=== PATIENT | female | born 1950 | race Caucasian/White ===

== ENCOUNTER → 2020-01-29 | Outpatient (CLI) | payer OTHER, MEDICARE ==
[~2020-01-29] MED LIST: ASPIR 8181 MG PO; BRILINTA90 MG PO; CENTRUM SILVER1 EAC5 PO; CHOLECALCIFEROL1 GM PO; FISH OIL 1,0001 EAC9 PO; NITROGLYCERIN0.4 MG SUBLING; ROSUVASTATIN CA20 MG PO
== END ==
LOC: SJCVC 13:44
DX: R07.9 Chest pain, unspecified (principal); J40 Bronchitis, not specified as acute or chronic; F41.9 Anxiety disorder, unspecified; I10 Essential (primary) hypertension; E55.9 Vitamin D deficiency, unspecified; Z68.26 Body mass index [BMI] 26.0-26.9, adult; Z79.899 Other long term (current) drug therapy

== ENCOUNTER → 2020-02-01 | Outpatient (CLI) | payer OTHER, MEDICARE | LOC: SJCVCIMAG 11:24 | DX: I36.1 Nonrheumatic tricuspid (valve) insufficiency (principal); I10 Essential (primary) hypertension; E78.5 Hyperlipidemia, unspecified ==

== ENCOUNTER 2020-02-13 07:43 | Observation (INO) | payer OTHER, MEDICARE ==
[~2020-02-13] VITALS: Ht 167.6 cm; Wt 76.5 kg
[2020-02-13] VITALS (15 sets, daily range): BP systolic 146–184; BP diastolic 78–99
[2020-02-13 08:27] LABS: HEMATOCRIT 42.2 % (37.0-47.0); HEMOGLOBIN 14.5 gm/dL (12.0-15.0); MCH 30.5 pg (26.0-34.0); MCHC 34.3 g/dL (28.0-37.0); MCV 88.7 fL (80.0-100.0); RBC 4.76 mil/uL (4.20-5.00); RDW 12.5 % (10.5-14.5); WBC 6.4 thou/uL (4.0-11.0)
[2020-02-13 08:36] LABS: CALCIUM 9.9 mg/dL (8.5-10.1); POTASSIUM 4.1 mmol/L (3.5-5.1)
[2020-02-13] MEDS ORDERED: ROSUVASTATIN CA20 MG PO (08:46)
[2020-02-13] MEDS ORDERED: CHOLECALCIFEROL1 GM PO (08:47)
[2020-02-13] MEDS ORDERED: FISH OIL 1,0001 EAC9 PO (08:48)
[2020-02-13] MEDS ORDERED: CENTRUM SILVER1 EAC5 PO (08:48)
--- NOTE | 2020-02-13 11:45 | NUR ---
TO UNIT FROM PACU POST CATH AT 1100, REPORT FROM KUNAL CARTAGENA. RIGHT GROIN SITE WITH MINX CLOSURE CDI, NO S/S HEMATOMA. NSR WITH FIRST DEGREE AV BLOCK PER TELE. HTN NOTED. BEDREST UNTIL 1330.
[2020-02-14 00:37] VITALS: BP 133/64
[2020-02-14 03:29] VITALS: BP 132/71
--- NOTE | 2020-02-14 03:45 | NUR ---
Slept fair during the night. Denies any chest pain or shortness of breath. Right groin soft with dressing CDI. Up ad ivette in room with steady gait. Progressing towards discharge goals.
[2020-02-14 07:30] VITALS: BP 137/67
[2020-02-14 12:04] VITALS: BP 137/67
--- NOTE | 2020-02-14 12:06 | NUR ---
ASSUMED CARE 0700. POST OF DAY 1 OF CATH STENT. ALERT X4, DENIES SOB, DENIES CHEST PAIN, RIGHT GROIN SITE C/D/I, UP AB LIP, OKAY TO WALK THE MOORE. WILL DC HOME WITH SELF CARE. CARDIAC REHAB NURSE PROVIDED BEDSIDE POST HEART CATH EDUCATIONS. DR HICKMAN BEDSIDE TO REVIEW POST PROCEDURE CARE. PERSONAL ITEMS AND CALL LIGHT IN REACH.
[2020-02-14] MEDS ORDERED: BRILINTA90 MG PO (12:08)
[2020-02-14] MEDS ORDERED: NITROGLYCERIN0.4 MG SUBLING (12:10)
[2020-02-14] MEDS ORDERED: ASPIR 8181 MG PO (12:11)
[2020-02-14 12:22] VITALS: BP 137/67
--- NOTE | 2020-02-15 13:06 | D ---
[facility] [place] [address] DISCHARGE SUMMARY Name: MARKO DAMON Room #: 203-P MARISA Ling#: [id number] Admission: 02/13/20 Attend Phys: Sam Fay Discharge: 02/14/20 Date of : 48 Report #: [id number] THIS REPORT FOR: cc: Remington Strange,Remington Jerez,Sam Haney MD ~ THIS REPORT FOR: //name// CC: Sam Strange DATE OF SERVICE: 02/14/2020 ADMITTING DIAGNOSIS: Chest pains with abnormal perfusion scan. DISCHARGE DIAGNOSES: 1. Coronary artery disease. 2. Dyslipidemia. 3. Acid peptic disease. PROCEDURES PERFORMED: 1. Left heart catheterization. 2. Percutaneous transluminal coronary angioplasty and stenting of the left anterior descending coronary artery with a MATTIE stent as noted in the report. DISCHARGE MEDICATIONS: 1. Brilinta 90 mg b.i.d. 2. Aspirin 81 mg daily. 3. Home medications. DISCHARGE DIET: [employer] step 1 diet. FOLLOWUP: Dr. Fay in 3-4 weeks. BRIEF CLINICAL HISTORY: See history and physical in chart. HOSPITAL COURSE: The patient was admitted to the hospital and underwent elective left heart catheterization. This demonstrated significant high-grade LAD lesion, which was subsequently percutaneously vascularized with a MATTIE stent. Post-procedure, the patient did quite well, ambulating without limitations. She remained electrically and hemodynamically stable without any significant issues. She was given instructions on dietary and medications and discharged [facility] [address] [place] [address] DISCHARGE SUMMARY Name: MARKO DAMON Room #: 203-P [facility] Jared Ling#: [id number] Admission: 02/13/20 Attend Phys: Sam Fay Discharge: 02/14/20 Date of : 48 Report #: [id number] home in a stable and improved condition to follow up with the previously stated discharge instructions and medications. <ELECTRONICALLY SIGNED> By: Sam Fay MD 02/15/20 1306 1212 1254 Sam Fay MD /nt
== END 2020-02-14 12:45 | disposition home or self-care (01) ==
LOC: CATH 07:43 → 2N 11:00 → CATH 14:07 → 2N 02-14 12:45
PROVIDERS: ADMIT Internal Medicine
DX: I25.10 Atherosclerotic heart disease of native coronary artery without angina pectoris (principal); K30 Functional dyspepsia; E78.5 Hyperlipidemia, unspecified

== ENCOUNTER → 2020-03-18 | Outpatient (CLI) | payer OTHER, MEDICARE | LOC: SJCVC 09:53 | PROVIDERS: ATTEND Internal Medicine | DX: I25.10 Atherosclerotic heart disease of native coronary artery without angina pectoris (principal); I10 Essential (primary) hypertension; E78.5 Hyperlipidemia, unspecified; Z95.5 Presence of coronary angioplasty implant and graft ==

== ENCOUNTER → 2020-06-20 | Outpatient (CLI) | payer OTHER, MEDICARE | LOC: SJCVC 10:16 | PROVIDERS: ATTEND Internal Medicine | DX: R00.1 Bradycardia, unspecified (principal); I25.10 Atherosclerotic heart disease of native coronary artery without angina pectoris; I10 Essential (primary) hypertension; E78.5 Hyperlipidemia, unspecified; Z95.5 Presence of coronary angioplasty implant and graft ==

== ENCOUNTER → 2021-08-07 | Outpatient (CLI) | payer OTHER, MEDICARE | LOC: SJCVC 13:42 | PROVIDERS: ATTEND Internal Medicine | DX: I25.10 Atherosclerotic heart disease of native coronary artery without angina pectoris (principal); E78.5 Hyperlipidemia, unspecified; I10 Essential (primary) hypertension; F41.9 Anxiety disorder, unspecified; N20.0 Calculus of kidney; E80.4 Gilbert syndrome; E55.9 Vitamin D deficiency, unspecified; Z79.82 Long term (current) use of aspirin; Z79.899 Other long term (current) drug therapy; Z88.8 Allergy status to other drugs, medicaments and biological substances ==

== ENCOUNTER 2021-11-19 13:25 | Emergency (ER) | payer OTHER, MEDICARE ==
[~2021-11-19] VITALS: Ht 170.2 cm; Wt 68.0 kg
--- NOTE | ~2021-11-19 | EMS ---
[address] [address] EMS Patient Care Report Name: MARKO DAMON Room #: REG FAUSTO Ling#: [id number] Admission: 11/19/21 Attend Phys: Discharge: Date of : 48 Report #: [id number] THIS REPORT FOR: //name// Report Transmitted: 11/19/2021 13:18 EMS Care Summary MACEY Chi ELY Incident [id number] @ 11/19/2021 12:28 Incident Location [address] [facility] [place] [address] Patient MARKO HOLMAN Female, 71 Years 1950 Patient Address [address] [place] [address] Patient History , Patient Allergies No known allergies, Chief Complaint Nausea Disposition Transported No Lights/[place] Dispatch Reason Sick Person Transported To [facility] Narrative [facility] WAS DISPATCHED EMERGENT FOR A 71 Y/O FEMALE WHO HAS HIGH BLOOD PRESSURE AND IS NAUSEATED. UPON ARRIVAL ON SCENE AT [facility], THE PT WAS FOUND IN THE WOMEN'S BATHROOM. THE PT WAS PALE, COOL, DRY, AWAKE, ALERT, AND A GCS OF 15 THE PT APPEARED ANXIOUS. THE PT INDICATES THAT SHE BECAME DIZZY WHILE WORKING AND IT BECAME SO BAD THAT SHE BECAME NAUSEOUS. THE PT DID VOMIT ONCE BEFORE EMS ARRIVAL. THE PT WAS NEAR SYNCOPE BUT NEVER LOST consciousness. THE PT DID NOT FALL AND DID NOT HIT HER HEAD. IFD INDICATED THAT THE PT'S BLOOD PRESSURE WAS [address] [address] EMS Patient Care Report Name: MARKO DAMON Room #: REG [facility]..#: [id number] Admission: 11/19/21 Attend Phys: Discharge: Date of : 48 Report #: [id number] HIGH AND THE 12 LEAD WAS NORMAL SINUS (sEE REPORT). THE PT DENIES A HISTORY OF HTN. THE PT'S BLOOD PRESSURE WAS 190/P FOR EMS. THE PT INDICATES STILL FEELING NAUSEOUS AND DIZZY. THE PT INDICATES FEELING SLIGHTLY BETTER EITHER LEANING FORWARD IN THE SEAT OR STANDING UP. THE PT INDICATES THAT THIS HAS NEVER HAPPENED BEFORE. THE PT WAS SAT ON THE COT AND THEN LOADED INTO THE AMBULANCE. ONCE IN THE AMBULANCE, A SET OF VITALS, IV, BGL, BLOOD DRAW, 4 LEAD, AND LACTATED RINGER'S WAS HUNG GOING TKO (SEE REPORT). THE PT WAS GIVEN IV ZOFRAN WHICH TOOK AWAY THE NAUSEA. THERE WAS NO DCAP-BTLS NOTED, PUPILS ARE YASMIN, AND LUNG SOUNDS ARE CLEAR. MACEY Ortiz WENT EN ROUTE NON-EMERGENT TO [facility] PER THE PT'S REQUEST. A RADIO REPORT WAS GIVEN EN ROUTE. THE PT REMAINED STABLE, GCS OF 15, AND VITALS WERE MONITORED. THE PT DID SLEEP SOME EN ROUTE. THE PT INDICATES THAT HER NAUSEA DID COME BACK BUT NOT BAD IT HAD BEEN. THE PT WAS DRY HEAVING SLIGHTLY PRIOR TO ARRIVAL AT THE ER. UPON ARRIVAL, THE PT WAS UNLOADED AND TAKEN TO THE ER BED. A HAND OFF REPORT WAS GIVEN. MACEY Ortiz WAS THEN CLEARED AND RETURNED TO SERVICE. Initial Vitals @12:58SpO2: 100, @13:03SpO2: 100, @13:08SpO2: 100, @13:14SpO2: 99, @13:15SpO2: 100, @STEEL ERECTOR APPRENTICE @PTAP: 98,R: 18,BP: 218/118, @12:58P: 75,R: 16,BP: 192/101, @13:03P: 74,R: 16,BP: 185/85, @13:08P: 73,R: 16,BP: 191/81, @13:14P: 71,R: 16,BP: 191/87, @PTAGCS: 15, @12:58GCS: 15, @13:03GCS: 15, @13:08GCS: 15, @13:14GCS: 15, @12:54Glucose: 114, Assessments @12:42MENTAL:SKIN:HEENT:LUNG SOUNDS:ABDOMEN:PELVIS//GI:EXTREMITIES:PULSE:NEURO: Impression Dizziness Procedures @12:58 Ondansetron - 4.000 Milligrams (mg) - Intravenous (IV) Response: Improved @12:54 IV Therapy - cc () Site: Antecubital-Left Response: UnchangedSucceeded @12:54 Blood Draw - cc () Response: UnchangedSucceeded [address] [address] EMS Patient Care Report Name: MARKO DAMON Room #: REG FAUSTO Ling#: [id number] Admission: 11/19/21 Attend Phys: Discharge: Date of : 48 Report #: [id number] @[id number] ECG Response: UnchangedSucceeded Timeline STEEL ERECTOR APPRENTICE,12-Lead ECG,Response: UnchangedSucceeded, STEEL ERECTOR APPRENTICE,BP: / M,PULSE: ,RR: R,SPO2: Ox,ETCO2: ,BG: ,PAIN: ,GCS: , STEEL ERECTOR APPRENTICE,BP: 218/118 M,PULSE: 98,RR: 18 R,SPO2: Ox,ETCO2: ,BG: ,PAIN: ,GCS: , STEEL ERECTOR APPRENTICE,BP: / M,PULSE: ,RR: R,SPO2: Ox,ETCO2: ,BG: ,PAIN: ,GCS: 15, 12:20,Call Received 12:27,Dispatch Notified 12:,Psap Call 12:28,Dispatched 12:28,En Route 12:35,On Scene 12:42,At Patient 12:54,IV Therapy - cc Site: Antecubital-Left,Response: UnchangedSucceeded, 12:54,Blood Draw - cc Site: ,Response: UnchangedSucceeded, 12:54,Depart Scene 12:54,BP: / M,PULSE: ,RR: R,SPO2: Ox,ETCO2: ,B,PAIN: ,GCS: , 12:58,BP: / M,PULSE: ,RR: R,SPO2: 100 Ox,ETCO2: ,BG: ,PAIN: ,GCS: , 12:58,BP: 192/101 M,PULSE: 75,RR: 16 R,SPO2: Ox,ETCO2: ,BG: ,PAIN: ,GCS: , 12:58,BP: / M,PULSE: ,RR: R,SPO2: Ox,ETCO2: ,BG: ,PAIN: ,GCS: 15, 12:58,Ondansetron - 4.000 Milligrams (mg) - Intravenous (IV),Response: Improved 13:03,BP: / M,PULSE: ,RR: R,SPO2: 100 Ox,ETCO2: ,BG: ,PAIN: ,GCS: , 13:03,BP: 185/85 M,PULSE: 74,RR: 16 R,SPO2: Ox,ETCO2: ,BG: ,PAIN: ,GCS: , 13:03,BP: / M,PULSE: ,RR: R,SPO2: Ox,ETCO2: ,BG: ,PAIN: ,GCS: 15, 13:08,BP: / M,PULSE: ,RR: R,SPO2: 100 Ox,ETCO2: ,BG: ,PAIN: ,GCS: , 13:08,BP: 191/81 M,PULSE: 73,RR: 16 R,SPO2: Ox,ETCO2: ,BG: ,PAIN: ,GCS: , 13:08,BP: / M,PULSE: ,RR: R,SPO2: Ox,ETCO2: ,BG: ,PAIN: ,GCS: 15, 13:14,BP: / M,PULSE: ,RR: R,SPO2: 99 Ox,ETCO2: ,BG: ,PAIN: ,GCS: , 13:14,BP: 191/87 M,PULSE: 71,RR: 16 R,SPO2: Ox,ETCO2: ,BG: ,PAIN: ,GCS: , 13:14,BP: / M,PULSE: ,RR: R,SPO2: Ox,ETCO2: ,BG: ,PAIN: ,GCS: 15, 13:15,BP: / M,PULSE: ,RR: R,SPO2: 100 Ox,ETCO2: ,BG: ,PAIN: ,GCS: , 13:21,At Destination 13:27,Call Closed Disclaimer v1.1 Copyright 2021 [employer] This EMS Care Summary contains data elements from the applicable legal record (which may be displayed differently). It is designed to provide pertinent information for the following purposes: continuity of care, clinical quality, and state data reporting. The complete legal record is available to ED staff and administrators of the receiving hospital in [employer]'s Patient Tracker. All data is provided "as is."
--- NOTE | ~2021-11-19 | EMS ---
[address] [address] EMS Patient Care Report Name: MARKO DAMON Room #: REG FAUSTO Ling#: [id number] Admission: 11/19/21 Attend Phys: Discharge: Date of : 48 Report #: [id number] THIS REPORT FOR: //name// Report Transmitted: 11/19/2021 13:18 EMS Care Summary MACEY Chi ELY Incident [id number] @ 11/19/2021 12:28 Incident Location [address] [facility] [place] [address] Patient MARKO HOLMAN Female, 71 Years 1950 Patient Address [address] [place] [address] Patient History , Patient Allergies No known allergies, Chief Complaint Nausea Disposition Transported No Lights/[place] Dispatch Reason Sick Person Transported To [facility] Narrative [facility] WAS DISPATCHED EMERGENT FOR A 71 Y/O FEMALE WHO HAS HIGH BLOOD PRESSURE AND IS NAUSEATED. UPON ARRIVAL ON SCENE AT [facility], THE PT WAS FOUND IN THE WOMEN'S BATHROOM. THE PT WAS PALE, COOL, DRY, AWAKE, ALERT, AND A GCS OF 15 THE PT APPEARED ANXIOUS. THE PT INDICATES THAT SHE BECAME DIZZY WHILE WORKING AND IT BECAME SO BAD THAT SHE BECAME NAUSEOUS. THE PT DID VOMIT ONCE BEFORE EMS ARRIVAL. THE PT WAS NEAR SYNCOPE BUT NEVER LOST consciousness. THE PT DID NOT FALL AND DID NOT HIT HER HEAD. IFD INDICATED THAT THE PT'S BLOOD PRESSURE WAS [address] [address] EMS Patient Care Report Name: MARKO DAMON Room #: REG [facility].#: [id number] Admission: 11/19/21 Attend Phys: Discharge: Date of : 48 Report #: [id number] HIGH AND THE 12 LEAD WAS NORMAL SINUS (sEE REPORT). THE PT DENIES A HISTORY OF HTN. THE PT'S BLOOD PRESSURE WAS 190/P FOR EMS. THE PT INDICATES STILL FEELING NAUSEOUS AND DIZZY. THE PT INDICATES FEELING SLIGHTLY BETTER EITHER LEANING FORWARD IN THE SEAT OR STANDING UP. THE PT INDICATES THAT THIS HAS NEVER HAPPENED BEFORE. THE PT WAS SAT ON THE COT AND THEN LOADED INTO THE AMBULANCE. ONCE IN THE AMBULANCE, A SET OF VITALS, IV, BGL, BLOOD DRAW, 4 LEAD, AND LACTATED RINGER'S WAS HUNG GOING TKO (SEE REPORT). THE PT WAS GIVEN IV ZOFRAN WHICH TOOK AWAY THE NAUSEA. THERE WAS NO DCAP-BTLS NOTED, PUPILS ARE YASMIN, AND LUNG SOUNDS ARE CLEAR. MACEY Ortiz WENT EN ROUTE NON-EMERGENT TO [facility] PER THE PT'S REQUEST. A RADIO REPORT WAS GIVEN EN ROUTE. THE PT REMAINED STABLE, GCS OF 15, AND VITALS WERE MONITORED. THE PT DID SLEEP SOME EN ROUTE. THE PT INDICATES THAT HER NAUSEA DID COME BACK BUT NOT BAD IT HAD BEEN. THE PT WAS DRY HEAVING SLIGHTLY PRIOR TO ARRIVAL AT THE ER. UPON ARRIVAL, THE PT WAS UNLOADED AND TAKEN TO THE ER BED. A HAND OFF REPORT WAS GIVEN. MACEY Ortiz WAS THEN CLEARED AND RETURNED TO SERVICE. Initial Vitals @12:58SpO2: 100, @13:03SpO2: 100, @13:08SpO2: 100, @13:14SpO2: 99, @13:15SpO2: 100, @SKI BASE TRIMMER @PTAP: 98,R: 18,BP: 218/118, @12:58P: 75,R: 16,BP: 192/101, @13:03P: 74,R: 16,BP: 185/85, @13:08P: 73,R: 16,BP: 191/81, @13:14P: 71,R: 16,BP: 191/87, @PTAGCS: 15, @12:58GCS: 15, @13:03GCS: 15, @13:08GCS: 15, @13:14GCS: 15, @12:54Glucose: 114, Assessments @12:42MENTAL:SKIN:HEENT:LUNG SOUNDS:ABDOMEN:PELVIS//GI:EXTREMITIES:PULSE:NEURO: Impression Dizziness Procedures @12:58 Ondansetron - 4.000 Milligrams (mg) - Intravenous (IV) Response: Improved @12:54 IV Therapy - cc () Site: Antecubital-Left Response: UnchangedSucceeded @12:54 Blood Draw - cc () Response: UnchangedSucceeded [address] [address] EMS Patient Care Report Name: MARKO DAMON Room #: REG FAUSTO Ling#: [id number] Admission: 11/19/21 Attend Phys: Discharge: Date of : 48 Report #: [id number] @[id number] ECG Response: UnchangedSucceeded Timeline SKI BASE TRIMMER,12-Lead ECG,Response: UnchangedSucceeded, SKI BASE TRIMMER,BP: / M,PULSE: ,RR: R,SPO2: Ox,ETCO2: ,BG: ,PAIN: ,GCS: , SKI BASE TRIMMER,BP: 218/118 M,PULSE: 98,RR: 18 R,SPO2: Ox,ETCO2: ,BG: ,PAIN: ,GCS: , SKI BASE TRIMMER,BP: / M,PULSE: ,RR: R,SPO2: Ox,ETCO2: ,BG: ,PAIN: ,GCS: 15, 12:20,Call Received 12:27,Dispatch Notified 12:,Psap Call 12:28,Dispatched 12:28,En Route 12:35,On Scene 12:42,At Patient 12:54,IV Therapy - cc Site: Antecubital-Left,Response: UnchangedSucceeded, 12:54,Blood Draw - cc Site: ,Response: UnchangedSucceeded, 12:54,Depart Scene 12:54,BP: / M,PULSE: ,RR: R,SPO2: Ox,ETCO2: ,B,PAIN: ,GCS: , 12:58,BP: / M,PULSE: ,RR: R,SPO2: 100 Ox,ETCO2: ,BG: ,PAIN: ,GCS: , 12:58,BP: 192/101 M,PULSE: 75,RR: 16 R,SPO2: Ox,ETCO2: ,BG: ,PAIN: ,GCS: , 12:58,BP: / M,PULSE: ,RR: R,SPO2: Ox,ETCO2: ,BG: ,PAIN: ,GCS: 15, 12:58,Ondansetron - 4.000 Milligrams (mg) - Intravenous (IV),Response: Improved 13:03,BP: / M,PULSE: ,RR: R,SPO2: 100 Ox,ETCO2: ,BG: ,PAIN: ,GCS: , 13:03,BP: 185/85 M,PULSE: 74,RR: 16 R,SPO2: Ox,ETCO2: ,BG: ,PAIN: ,GCS: , 13:03,BP: / M,PULSE: ,RR: R,SPO2: Ox,ETCO2: ,BG: ,PAIN: ,GCS: 15, 13:08,BP: / M,PULSE: ,RR: R,SPO2: 100 Ox,ETCO2: ,BG: ,PAIN: ,GCS: , 13:08,BP: 191/81 M,PULSE: 73,RR: 16 R,SPO2: Ox,ETCO2: ,BG: ,PAIN: ,GCS: , 13:08,BP: / M,PULSE: ,RR: R,SPO2: Ox,ETCO2: ,BG: ,PAIN: ,GCS: 15, 13:14,BP: / M,PULSE: ,RR: R,SPO2: 99 Ox,ETCO2: ,BG: ,PAIN: ,GCS: , 13:14,BP: 191/87 M,PULSE: 71,RR: 16 R,SPO2: Ox,ETCO2: ,BG: ,PAIN: ,GCS: , 13:14,BP: / M,PULSE: ,RR: R,SPO2: Ox,ETCO2: ,BG: ,PAIN: ,GCS: 15, 13:15,BP: / M,PULSE: ,RR: R,SPO2: 100 Ox,ETCO2: ,BG: ,PAIN: ,GCS: , 13:21,At Destination 13:27,Call Closed Disclaimer v1.1 Copyright 2021 [employer] This EMS Care Summary contains data elements from the applicable legal record (which may be displayed differently). It is designed to provide pertinent information for the following purposes: continuity of care, clinical quality, and state data reporting. The complete legal record is available to ED staff and administrators of the receiving hospital in [employer]'s Patient Tracker. All data is provided "as is."
[2021-11-19 13:45] LABS: ABSOLUTE NEUTROPHILS 5.9 thou/uL (1.4-8.2); BASOPHILS 0.9 % (0.0-2.0); EOSINOPHILS 1.7 % (0.0-3.0); HEMATOCRIT 39.4 % (37.0-47.0); HEMOGLOBIN 13.6 gm/dL (12.0-15.0); MCH 30.1 pg (26.0-34.0); MCHC 34.6 g/dL (28.0-37.0); MONOCYTES 4.8 % (1.0-8.0); PLATELET COUNT 278 thou/uL (150-400); POLYS 69.6 % (36.0-66.0); RBC 4.53 mil/uL (4.20-5.00); RDW 13.2 % (10.5-14.5); WBC 8.5 thou/uL (4.0-11.0)
[2021-11-19 13:49] LABS: CALCIUM 10.4 mg/dL (8.5-10.1); CREATININE 0.9 mg/dL (0.6-1.0); POTASSIUM 3.6 mmol/L (3.5-5.1)
[2021-11-19 13:59] LABS: ALBUMIN 4.6 g/dL (3.4-5.0); TOTAL BILIRUBIN 2.1 mg/dL (0.2-1.0); TOTAL PROTEIN 6.9 g/dL (6.4-8.2)
[2021-11-19 14:52] LABS: URINE BILIRUBIN NEGATIVE (Negative); URINE BLOOD TRACE (Negative); URINE CLARITY CLEAR; URINE COLOR YELLOW; URINE GLUCOSE-RANDOM* NEGATIVE (Negative); URINE KETONES TRACE (Negative); URINE NITRITE-REFLEX NEGATIVE (Negative); URINE PROTEIN (DIPSTICK) NEGATIVE (Negative); URINE SPECIFIC GRAVITY 1.015 (1.005-1.035); URINE UROBILINOGEN 0.2 E.U./dl (0.2-1.0)
[2021-11-19 14:55] LABS: URINE LEUKOCYTES-REFLEX 2+ (Negative)
[2021-11-19 15:04] LABS: SQUAMOUS 0-3 Few /LPF (0-3); URINE RBC 3-10 Few /HPF (NONE SEEN); URINE WBC-REFLEX >25 Many /HPF (0-5)
[2021-11-19 15:05] LABS: BACTERIA-REFLEX >30 Many /HPF (None Seen); CASTS None Seen /LPF (None Seen); CRYSTALS None Seen /LPF (None Seen)
[2021-11-19] MEDS ORDERED: CEPHALEXIN500 MG PO (15:13)
[2021-11-19 15:33] VITALS: BP 183/83
--- NOTE | 2021-11-20 09:57 | EKG ---
[address] [address] ELECTROCARDIOGRAM REPORT Name: MARKO DAMON Room #: DEP Sushil#: [id number] Admission: 11/19/21 Attend Phys: Discharge: 11/19/21 Date of : 48 Report #: [id number] [facility] ED Test Date: 2021-11-19 Test Time: 13:33:29 Pat Name: MARKO DAMON Department: Room: Gender: F Senior Cyber Security Analyst: kassidy juan : 1950 Requested By: Jennifer Batres Order Number: [id number] MD: Gustavo Urbina Measurements Intervals [place] Rate: 65 P: 65 CO: 202 QRS: 47 QRSD: 90 T: 52 QT: 415 QTc: 432 Interpretive Statements Sinus rhythm No previous ECG available for comparison Electronically Signed On 11-20-2021 9:57:05 [employer] by Gustavo Urbina [email or web address] <ELECTRONICALLY SIGNED> By: Gustavo Urbina MD, [facility] 11/20/21 0957 1333 1333 Gustavo Urbina MD, FACC /EPI
== END 2021-11-19 15:42 | disposition home or self-care (01) ==
LOC: ER 13:25
PROVIDERS: Physician Assistant
DX: E86.0 Dehydration (principal); Z20.822 Contact with and (suspected) exposure to COVID-19; R55 Syncope and collapse; R11.2 Nausea with vomiting, unspecified; N39.0 Urinary tract infection, site not specified; Z90.89 Acquired absence of other organs; Z98.51 Tubal ligation status; Z79.899 Other long term (current) drug therapy; Z88.8 Allergy status to other drugs, medicaments and biological substances

== ENCOUNTER → 2021-11-23 | Outpatient (CLI) | payer OTHER, MEDICARE ==
[~2021-11-23] MED LIST changes: +CEPHALEXIN500 MG PO
== END ==
LOC: SJCVC 15:08
PROVIDERS: ATTEND Internal Medicine
DX: I25.10 Atherosclerotic heart disease of native coronary artery without angina pectoris (principal); R55 Syncope and collapse; I10 Essential (primary) hypertension; E78.5 Hyperlipidemia, unspecified; F41.9 Anxiety disorder, unspecified; N20.0 Calculus of kidney; Z79.82 Long term (current) use of aspirin; Z79.899 Other long term (current) drug therapy; Z88.8 Allergy status to other drugs, medicaments and biological substances